=== PATIENT | female | born 1960 | race African-American/Black ===

== ENCOUNTER → 2016-07-07 | Outpatient (CLI) | payer OTHER ==
--- NOTE | 2016-07-07 12:44 | RAD ---
EXAM: DIGITAL DIAGNOSTIC RT, BREAST RIGHT DATE: 07/07/2016 HISTORY: Suspicious screening study COMPARISON: 06/09/2016 This study was interpreted with the benefit of Computerized Aided Detection (CAD). FINDINGS: On the screening study of 06/09/2016 a an elongated irregular density was seen posterolaterally in the right breast just inferior to the level of the nipple, best demonstrated on the cc tomographic image #16. It was less clearly seen in the oblique projection, probably visible on oblique tomographic image #17. This density is not clearly demonstrated on today's 2-D spot compression oblique, spot compression CC, rolled cc or straight medial lateral views. This is likely due to overlying fibroglandular shadows. Right breast ultrasound, 07/07/2016: A targeted ultrasound exam of the right breast was obtained from the 6:00 to 10:00 locations. Heterogeneous fibroglandular shadows are present. No breast mass is identified. IMPRESSION: Small suspicious density in the right breast at the 8:00 location, best demonstrated on the screening tomographic views. No sonographic correlate could be identified. MR scanning is suggested for further evaluation. BI-RADS CATEGORY: 0 INCOMPLETE: NEEDS ADDITIONAL IMAGING EVALUATION AND/OR PRIOR MAMMOGRAMS FOR COMPARISON. RECOMMENDED FOLLOW-UP: ADD ADDITIONAL IMAGING PQRS compliance statement: Patient information was entered into a reminder system with a target due date for the next mammogram. Mammography is a sensitive method for finding small breast cancers, but it does not detect them all and is not a substitute for careful clinical examination. A negative mammogram does not negate a clinically suspicious finding and should not result in delay in biopsying a clinically suspicious abnormality. "Our facility is accredited by the [employer] Mammography Program."
== END | disposition home or self-care (01) ==
LOC: MAMMO 11:12
PROVIDERS: ATTEND Nurse Practitioner
DX: R92.8 Other abnormal and inconclusive findings on diagnostic imaging of breast (principal)
CPT/HCPCS: 76641; G0206; 77065

== ENCOUNTER 2017-02-15 18:21 | Emergency (ER) | payer OTHER ==
[2017-02-15] MEDS ORDERED: ONDA8TAB12 PO (18:40)
--- NOTE | 2017-02-15 18:41 | PHYS DOC ---
Past History Additional Past Medical Histor: Migraines Past Surgical History: Hysterectomy Smoking: Non-smoker Social History Narrative: Receives care at [facility] Chief Complaint Chief Complaint: HEADACHE HPI HPI Patient is a 56 year old female who presents with migraine headache. She states she was in her vehicle at [facility] parking lot she called the station. When EMS arrived she was holding her head denies trauma. She states this migraine headache started one hour ago. Consistent with prior migraine headaches. It is on the left side. She has nausea but no vomiting. She has not had any recent fever or sore throat. She has a cough this been going on for several days. No recent travel. No tobacco use. D stick by EMS was 87. She states she receives her care at the [facility] and her prior CT imaging studies were done there as well. Review of Systems Review of Systems Constitutional: Denies fever or chills Eyes: Denies change in visual acuity, redness, or eye pain HENT: Denies nasal congestion or sore throat; no neck pain Respiratory: POS cough but no shortness of breath Cardiovascular: No chest pain GI: Denies abdominal pain, POS nausea, NO vomiting, bloody stools or diarrhea : Denies dysuria or hematuria Musculoskeletal: Denies back pain or joint pain Integument: Denies rash or skin lesions Neurologic: POS headache, focal weakness or sensory changes All other systems were reviewed and found to be within normal limits, except as documented in this note. Allergies Allergies Allergies Coded Allergies Type Severity Reaction Last Updated Verified No Known Drug Allergies 02/15/17 No Physical Exam Physical Exam Constitutional: Well developed, well nourished, no acute distress, non-toxic appearance. Holding a pillow over her head HENT: Normocephalic, atraumatic, bilateral external ears normal, oropharynx moist, no oral exudates, nose normal. Eyes: PERRLA, EOMI, conjunctiva normal, no discharge. Neck: Normal range of motion, no tenderness, supple, no stridor. No meningismus Cardiovascular:Heart rate regular rhythm, no murmur Lungs & Thorax: Bilateral breath sounds clear to auscultation Abdomen: Bowel sounds normal, soft, no tenderness, no masses, no pulsatile masses. Skin: Warm, dry, no erythema, no rash. Back: No tenderness, no CVA tenderness. Extremities: No tenderness, no cyanosis, no clubbing, ROM intact, no edema. Neurologic: Alert and oriented X 3, normal motor function, normal sensory function, no focal deficits noted. Normal attentiveness Psychologic: Affect normal, judgement normal, mood normal. Current Patient Data Vital Signs BP 126/61, P 69, sat 97%, T 98.6 Course & Med Decision Making Course & Med Decision Making Evaluated patient upon arrival by EMS. Declines any imaging. States "I need my 2 shots." Reviewed prior records; no migraine visits here but then patient qualified and stated that her migraines are treated at the [facility]. Toradol and Phenergan IM. The patient presented to the emergency part with headache. The patient is now resting comfortably and feels better, is awake, talkative, interactive, and in no acute distress. The patient appears well and is able to tolerate by mouth fluids and medications. Repeat evaluation is unremarkable without any specific neurologic findings. The patient is neurologically intact, has normal mental status, normal attentiveness and is ambulatory in the ED. The history, exam, and any diagnostic testing completed in the ED (if any) and the patient's current condition do not suggest meningitis, stroke, sepsis, subarachnoid hemorrhage, intracranial bleed, encephalitis, temporal arteritis, or other significant pathology warranting further testing and continue treatment in the ED. At this point I do not believe admission or neurologic consultation or other specialist evaluation are needed at this point. The patient's vital signs have been stabilized. Patient's condition is stable and appropriate for discharge. The patient will pursue further up and evaluation with primary care and other designated resources or consulting physicians as indicated in the discharge instructions. I have spoken with the patient and/or caregivers. I have explained the patient' s condition, diagnosis and treatment plan based on the information available to me at this time. I have answered the patient's and/or caregiver's questions and addressed any concerns. The patient and/or caregivers have as good an understanding of the patient's diagnosis, condition and treatment plan as can be expected at this point. The patient's condition is stable and appropriate for discharge from the emergency department. The patient will pursue further outpatient evaluation with the primary care physician or other designated or consulting physician as outlined in the discharge instructions. The patient and/or caregivers are agreeable to this plan of care and follow-up instructions have been explained in detail. The patient and/or caregivers have received these instructions in written format and have expressed an understanding of the discharge instructions. The patient and/or caregivers are aware that any significant change in condition or worsening of symptoms should prompt an immediate return to this or the closest emergency department or a call to 911. Dragon Disclaimer Dragon Disclaimer This electronic medical record was generated, in whole or in part, using a voice recognition dictation system. Departure Departure: Impression: Primary Impression: Migraine headache Disposition: HOME, SELF-CARE Condition: STABLE Referrals: ROBBIN CHOI APRN (PCP) Patient Instructions: Migraine Headache Scripts Ondansetron (ZOFRAN ODT) 8 Mg Tab.rapdis 8 MG PO Q6-8HRS Y for NAUSEA, #10 Prov: ELINA PENA MD 02/15/17 Problem Qualifiers Primary Impression: Migraine headache Migraine type: without aura Status migrainosus presence: without status migrainosus Intractability: not intractable Qualified Codes: G43.009 - Migraine without aura, not intractable, without status migrainosus ELINA PENA MD Feb 15, 2017 18:41
[2017-02-15] MEDS ORDERED: KETOROLAC 60 MG/2 ML VIAL. IM ONE ×2 (18:44→19:00)
[2017-02-15] MEDS ORDERED: PROMETHAZINE IM 25 MG/ML VIAL IM ONE ×2 (18:44→19:00)
[2017-02-15 19:39] VITALS: BP 136/58
[2017-02-15] MEDS ORDERED: ONDANSETRON 4MG ODT 4TABLET STARTPACK. PO ONE (19:45)
== END 2017-02-15 19:00 | disposition home or self-care (01) ==
LOC: ER 18:21
DX: G43.009 Migraine without aura, not intractable, without status migrainosus (principal)
CPT/HCPCS: 96372; 99284; J1885; J2550; Q0162

== ENCOUNTER 2020-03-11 04:33 | Emergency (ER) | payer OTHER ==
[~2020-03-11] VITALS: Ht 165.1 cm; Wt 81.0 kg
[~2020-03-11 04:33] MED LIST: ONDA8TAB12 PO
[2020-03-11] MEDS ORDERED: BUTA1TAB23 PO (04:51)
[2020-03-11] MEDS ORDERED: ONDA4TAB12 PO (04:51)
--- NOTE | 2020-03-11 04:51 | PHYS DOC ---
Past History Past Medical History: Hypertension, Migraines (TIMOTEO MORILLO DO) Past Surgical History: Hysterectomy (TIMOTEO MORILLO DO) Smoking: Non-smoker Alcohol Use: None Drug Use: None (TIMOTEO MORILLO DO) General Adult EDM: Chief Complaint: HEADACHE HPI: HPI: 59-year-old female presents via EMS with report of headache consistent for chronic migraines that started approximately 3 hours ago. Reports associated nausea and vomiting. Patient reports she trialed taking Zofran p.o. and sumatriptan and prior to arrival without interval improvement. [facility] Patient denies any trauma. Denies fever or chills. Reports symptoms similar to prior episodes. (TIMOTEO MORILLO DO) Review of Systems: Review of Systems: Constitutional: Denies fever or chills Eyes: Denies redness or eye pain HENT: Denies nasal congestion or sore throat Respiratory: Denies cough or shortness of breath Cardiovascular: Denies chest pain or palpitations GI: Denies abdominal pain; reports nausea and vomiting : Denies dysuria or hematuria Musculoskeletal: Denies back pain or joint pain Integument: Denies rash or skin lesions Neurologic: Reports headache; denies focal weakness or sensory changes Complete systems were reviewed and found to be within normal limits, except as documented in this note. (TIMOTEO MORILLO DO) Current Medications: Current Meds: Current Medications Medications (Trade) Dose Ordered Sig/Juan Diego Start Time Stop Time Status Last Admin Dose Admin Dexamethasone Sodium Phosphate (Decadron) 10 mg 1X ONCE 03/11/20 04:45 03/11/20 04:46 UNV Diphenhydramine HCl (Benadryl) 25 mg 1X ONCE 03/11/20 04:45 03/11/20 04:46 UNV Ketorolac Tromethamine (Toradol 15mg Vial) 15 mg 1X ONCE 03/11/20 04:45 03/11/20 04:46 UNV Metoclopramide HCl (Reglan Vial) 10 mg 1X ONCE 03/11/20 04:45 03/11/20 04:46 UNV Sodium Chloride 1,000 ml @ 1,000 mls/hr 1X ONCE 03/11/20 04:45 03/11/20 05:44 UNV (TIMOTEO MORILLO DO) Allergies: Allergies: Allergies Coded Allergies Type Severity Reaction Last Updated Verified No Known Drug Allergies 02/15/17 No (TIMOTEO MORILLO DO) Physical Exam: PE: Constitutional: Well developed, well nourished, appears uncomfortable, non-toxic appearance, patient wearing a towel over her eyes despite use of sunglasses HENT: Normocephalic, atraumatic Eyes: EOMI, photophobia, conjunctiva normal, no discharge Neck: Normal range of motion, no tenderness, supple, no meningeal signs Lungs & Thorax: No respiratory distress, equal chest rise and fall Abdomen: Soft, no tenderness Skin: Warm, dry, no erythema, no rash Extremities: No tenderness, ROM intact, no edema Neurologic: Alert and oriented X 3, normal motor function, normal sensory function, no focal deficits noted Psychologic: Affect anxious, judgment normal (TIMOTEO MORILLO DO) Current Patient Data: Vital Signs: Vital Signs Date Time Temp Pulse Resp B/P (MAP) Pulse Ox O2 Delivery O2 Flow Rate FiO2 03/11/20 04:33 66 18 136/58 (84) 100 Room Air (TIMOTEO MORILLO DO) EKG: EKG: [] (TIMOTEO MORILLO DO) Radiology/Procedures: Radiology/Procedures: [] (TIMOTEO MORILLO DO) Course & Med Decision Making: Course & Med Decision Making Patient presents with HPI and physical exam consistent for acute on chronic migraine headache. Patient is afebrile. No history of trauma. No meningeal signs appreciated. Symptomatic treatment provided. IV fluid hydration also provided. 0600- Sign out given to Dr. Romero for further evaluation and treatment. IVF still running. Plan for patient to be discharged home with outpatient follow-up with PCP/Neurology. Neurology referral provided. Discussed findings and plan with patient, who acknowledges understanding and agreement.. (TIMOTEO MORILLO DO) Course & Med Decision Making I took over patient from off going physician after receiving comprehensive signo ut I reviewed patient's chart and interventions so far, I personally saw patient and repeated certain aspects of history and physical examination. Patient reports great improvement in symptoms from ER intervention received. She feels ready for discharge home. I did disclose this might be an acute presentation of more concerning pathology but at present, there is no indication for further diagnostic work-up and/or intervention. Patient has PCP and has access to care in outpatient setting, I advised her to follow-up with an upcoming 5 days Strict return precautions were discussed with good understanding by patient, all questions and concerns addressed prior to your departure in improved condition (CUCO ROMERO DO) Casey Disclaimer: Casey Disclaimer: This electronic medical record was generated, in whole or in part, using a voice recognition dictation system. (TIMOTEO MORILLO DO) Departure Departure: Impression: Primary Impression: Headache Qualified Codes: R51.9 - Headache, unspecified Disposition: 01 DC HOME SELF CARE/HOMELESS Condition: IMPROVED Referrals: ROBBIN HCOI APRN (PCP) KIA DANG MD Patient Instructions: Headache, FAQs, Recurrent Migraine Headache Scripts Butalb/Acetaminophen/Caffeine ([id number] [id number]) 1 Each Tablet 1 EACH PO Q6HRS PRN for HEADACHE, #14 TAB Prov: TIMOTEO MORILLO DO 03/11/20 Ondansetron (ONDANSETRON ODT) 4 Mg Tab.rapdis 1 TAB PO PRN Q6-8HRS PRN for NAUSEA, #16 TAB Prov: TIMOTEO MORILLO DO 03/11/20 TIMOTEO MORILLO DO Mar 11, 2020 04:51 CUCO ROMERO DO Mar 11, 2020 06:33
[2020-03-11] MEDS ORDERED: IV NORMAL SALINE 1,000ML 1,000 ML IV ONE (05:00)
[2020-03-11] MEDS ORDERED: diphenhydrAMINE 50 MG/ML VIAL IVP ONE (05:00)
[2020-03-11] MEDS ORDERED: METOCLOPRAMIDE HCL 10 MG/2 ML VIAL. IVP ONE (05:00)
[2020-03-11] MEDS ORDERED: KETOROLAC 15 MG/ML VIAL. IVP ONE (05:00)
[2020-03-11] MEDS ORDERED: DEXAMETHASONE SOD PHOS 4 MG/ML VIAL. IVP ONE (05:00)
[2020-03-11 06:38] VITALS: BP 102/74
== END 2020-03-11 06:50 | disposition home or self-care (01) ==
LOC: ER 04:33
DX: G43.909 Migraine, unspecified, not intractable, without status migrainosus (principal); I10 Essential (primary) hypertension; R11.2 Nausea with vomiting, unspecified
CPT/HCPCS: 96361; 96374; 96375; 99284; J1100; J1200; J1885; J2765; J7030